=== PATIENT | female | born 1995 | race Hispanic/Latino ===

== ENCOUNTER 2018-07-14 02:53 | Emergency (ER) | payer OTHER ==
[~2018-07-14 02:53] MED LIST: MORPHINE SULFATE 2 MG/ML 1ML SYG ONE
[2018-07-14] MEDS ORDERED: LIDOCAINE 1%-EPI 1:100,000 20 ML VIAL IJ ONE (03:57)
[2018-07-14] MEDS ORDERED: AMOXICILLIN/POTASSIUM CLAV 500-125 TABLET PO ONE (05:41)
[2018-07-14] MEDS ORDERED: IBUPROFEN 600 MG TABLET ONE (05:41)
[2018-07-14] MEDS ORDERED: TETANUS/DIPHTHERIA TOXOID [ADULT] 0.5 ML VIAL IM ONE (06:28)
== END 2018-07-14 06:43 | disposition home or self-care (01) ==
LOC: EDH 02:53
DX: S51.811A Laceration without foreign body of right forearm, initial encounter (principal); S61.432A Puncture wound without foreign body of left hand, initial encounter; Z72.0 Tobacco use; W54.0XXA Bitten by dog, initial encounter; Y93.89 Activity, other specified; Y92.89 Other specified places as the place of occurrence of the external cause; Y99.8 Other external cause status
CPT/HCPCS: 12032; 73090; 73130; 90471; 90714; 96372; 99284; J3490